=== PATIENT | male | born 1995 | race Caucasian/White ===

== ENCOUNTER 2020-03-01 20:56 | Emergency (ER) | payer SELFPAY ==
[~2020-03-01] VITALS: Ht 165.1 cm; Wt 63.5 kg
[2020-03-01 21:28] VITALS: BP 115/76
[2020-03-01] MEDS ORDERED: BACITRACIN OINT 500 UNITS/GM PKT TP ONE (21:45)
[2020-03-01] MEDS ORDERED: LIDOCAINE/EPI 1% 1:100000 20 ML VIAL INJ ONE (21:45)
[2020-03-01 22:51] VITALS: BP 115/76
== END 2020-03-01 22:51 | disposition home or self-care (01) ==
LOC: MED 20:56
DX: S61.412A Laceration without foreign body of left hand, initial encounter (principal); W26.9XXA Contact with unspecified sharp object(s), initial encounter; Y93.89 Activity, other specified; Y92.89 Other specified places as the place of occurrence of the external cause; Y99.8 Other external cause status
CPT/HCPCS: 12004; 90471; 90715; 99283; J2001